=== PATIENT | female | born 1945 | race Caucasian/White ===

== ENCOUNTER 2018-01-12 09:04 | Outpatient (CLI) | payer MEDICARE, BC ==
--- NOTE | 2018-01-12 12:35 | MRI ---
MRI OF LEFT KNEE PERFORMED WITHOUT CONTRAST ENHANCEMENT: Date: 01-12-18 History: Knee and leg pain for the last five weeks. FINDINGS: There is increased signal change associated with an anterior cruciate ligament consistent with fairly extensive mucoid degeneration. Posterior cruciate ligament is intact. There is increased intrameniscal signal change within the body and posterior horn of the medial menis cus compatible with some internal mucoid degeneration. There is some minimal undersurface irregularit y to the posterior horn near the meniscal root suggesting some undersurface fraying or small tear. Although the anterior horn of the lateral meniscus can have a variable appearance and still be normal . The anterior horn in this case shows much more heterogeneous appearance suggesting mucoid degenerat ion. There is some minimal meniscal protrusion associated with this and some moderate arthritic brunner es of the lateral compartment of the knee with 3-4 mm area of full thickness articular cartilage loss involving more of the posterior articular cartilage and some subchondral marrow edema change noted. There is also some articular cartilage loss of the tibial cartilage. There is arthritic change of the patellofemoral joint space. There is fairly pronounced articular car tilage loss of the lateral facet, particularly near the apex of the patella and subchondral marrow ed bubba change and some associated abnormalities of the trochlear groove. Medial and lateral patellar retinaculum and quadriceps tendons are normal. There is some patellar ten dinosis noted. There is a mild to moderate joint effusion seen. Medial collateral ligament is intact. There is some increased signal change associated with the origi n of the lateral collateral ligament which could indicate some mucoid degeneration. IMPRESSION: 1. Arthritic changes of the knee which are more pronounced in the patellofemoral and lateral compartm ents. 2. 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 3. Minimal undersurface irregularity to the posterior horn of the medial meniscus. 4. Abnormal morphology to the anterior horn of the lateral meniscus suggesting internal mucoid degene ration. POS: [facility]
== END 2018-01-12 09:05 | disposition home or self-care (01) ==
LOC: SCSMRI 09:04
PROVIDERS: ATTEND Family Medicine
DX: M17.12 Unilateral primary osteoarthritis, left knee (principal)

== ENCOUNTER 2018-04-13 11:41 | Outpatient (CLI) | payer MEDICARE, BC | END 2018-04-13 11:42 | disposition home or self-care (01) | LOC: BICMAMMO 11:41 | PROVIDERS: ATTEND Family Medicine | DX: Z12.31 Encounter for screening mammogram for malignant neoplasm of breast (principal); Z80.3 Family history of malignant neoplasm of breast | CPT/HCPCS: 77063; 77067 ==

== ENCOUNTER 2018-05-27 09:14 | Emergency (ER) | payer MEDICARE, BC ==
[2018-05-27] MEDS ORDERED: HYDROcodone/Acetaminophen 5/325 mg Tablet ONE (10:11)
--- NOTE | 2018-05-27 10:42 | RAD ---
LEFT SHOULDER 3 VIEWS: HISTORY: A 73-year-old female with a history of left shoulder pain following an injury after tripping on a rug and falling. FINDINGS: Evidence for a comminuted fracture involving the humeral head and neck with some foreshortening. No sukhi dislocation. Clavicle and scapula appear intact. IMPRESSION: Comminuted fracture of the humeral head and neck with some foreshortening without dislocation. POS: [facility]
== END 2018-05-27 10:27 | disposition home or self-care (01) ==
LOC: SCSER 09:14
DX: S42.202A Unspecified fracture of upper end of left humerus, initial encounter for closed fracture (principal); E78.5 Hyperlipidemia, unspecified; I10 Essential (primary) hypertension; F32.9 Major depressive disorder, single episode, unspecified; W19.XXXA Unspecified fall, initial encounter

== ENCOUNTER 2018-06-01 08:12 | Outpatient (CLI) | payer MEDICARE, BC ==
--- NOTE | 2018-06-01 10:27 | CT ---
LEFT UPPER EXTREMITY CT WITHOUT IV CONTRAST INCLUDING 3D RENDERING: History: 73-year-old female with history of follow up left humeral head fracture. Comparison: 05-27-18 plain film examination FINDINGS: Comminuted fracture involving the humeral head and neck with slight foreshortening. There appears to be one small thin bony fragment which potentially could like intraarticularly. No dislocation. Diffus e soft tissue swelling and edema. IMPRESSION: Comminuted foreshortened humeral head and proximal neck fracture. There is one thin bony fragment whi ch potentially could be intraarticular. POS: [facility]
== END 2018-06-01 08:13 | disposition home or self-care (01) ==
LOC: CT 08:12
PROVIDERS: ATTEND Orthopaedic Surgery
DX: S42.212D Unspecified displaced fracture of surgical neck of left humerus, subsequent encounter for fracture with routine healing (principal)
CPT/HCPCS: 76377

== ENCOUNTER 2018-06-29 14:58 | Outpatient (CLI) | payer MEDICARE, BC ==
--- NOTE | 2018-06-29 16:51 | RAD ---
LUMBAR SPINE RADIOGRAPH SERIES FOUR VIEWS: INDICATIONS: Low back pain. FINDINGS: There is mild S-shaped curvature of the lumbar spine with accentuation of lumbar lordosis. There is mild retrolisthesis of L2 on L3 and grade I spondylolisthesis at L4-L5. Multilevel endplate degenera tive osteophytosis and associated disk space narrowing are present. There is multilevel facet osteoa rthritis, greatest inferiorly. No evidence of an acute compression fracture. No discrete displaced pars fracture is seen. IMPRESSION: Multilevel degenerative change and S-shaped curvature of the lumbar spine. POS: [facility]
== END 2018-06-29 14:59 | disposition home or self-care (01) ==
LOC: BICRAD 14:58
PROVIDERS: ATTEND Internal Medicine Rheumatology
DX: M54.5 Low back pain (principal); M47.816 Spondylosis without myelopathy or radiculopathy, lumbar region; M43.8X6 Other specified deforming dorsopathies, lumbar region
CPT/HCPCS: 72110

== ENCOUNTER 2018-08-05 11:16 | Outpatient (CLI) | payer MEDICARE, BC ==
--- NOTE | 2018-08-05 15:55 | MRI ---
MRI OF THE LEFT SHOULDER PERFORMED WITHOUT CONTRAST ENHANCEMENT: 08/05/18 HISTORY: Patient had a fall approximately nine weeks ago with shoulder pain ever since. COMPARISON: A 06/01/18 CT examination. There is motion artifact which degrades detail on this examination. There is a more transversely orie nted humeral neck fracture. The humeral shaft is displaced superiorly associated with this and there is a comminuted humeral head fracture which includes the greater tuberosity region. There is extensi ve marrow edema change associated with this. I believe that the humeral shaft is slightly more superi kin impacted than on the prior examination. The portions of the humeral head with a major component of articular surface is now more laterally rotated than on the previous exam. The infraspinatus tendon appears to be intact. There is what appears to be a partial undersurface tea r of the supraspinatus tendon. The extent of this is difficult to determine given the associated area s of fracture and the edema change related to the injury. It could be a moderate undersurface tear b ut the tendon is not retracted The subscapularis muscle is intact. The intra-articular portion of the biceps tendon is very tendinot ic in appearance with some increased signal change which may be related to the tendinopathy or possi kalin an associated split tear. There are marrow edema changes involving the inferior glenoid . There is some fluid type density along the posterior inferior glenoid which in reviewing the previous CT ma y actually represent some type of cyst within the bony portion of the glenoid rather than an actual labral tear as there is a subtle area of lucency seen on the CT bone windows in this area. The humeral attachment of the inferior glenohumeral ligament is effected due to the presence of the h umeral neck fracture which extends through the expected humeral attachment of the inferior glenohumer al ligament. IMPRESSION: 1. Comminuted humeral head fracture with an impacted humeral neck fracture. The humeral shaft ap pears more superiorly displaced than on the previous exam. 2. Partial undersurface tear of the supraspinatus tendon. The exact degree of tear is difficult to ascertain given the extensive edema change and fracture involving the greater tuberosity. I am not certain how much of the signal change of this is related to edema extending into the supraspinatus. 3. Thickened tendinophtic appearance to the biceps tendon specifically the intra-articular port ion of the biceps. There may be an associated split tear. POS: [facility]
== END 2018-08-05 11:17 | disposition home or self-care (01) ==
LOC: SCSMRI 11:16
PROVIDERS: ATTEND Pediatrics Sports Medicine
DX: M24.812 Other specific joint derangements of left shoulder, not elsewhere classified (principal); M25.512 Pain in left shoulder; M75.102 Unspecified rotator cuff tear or rupture of left shoulder, not specified as traumatic; S42.292A Other displaced fracture of upper end of left humerus, initial encounter for closed fracture

== ENCOUNTER 2019-03-31 13:30 | Inpatient (IN) | payer MEDICARE, BC ==
[2019-04-01 09:58] VITALS: BMI 30.5
[2019-04-09] MEDS ORDERED: Tranexamic Acid 1,000 MG/10 ML VIAL ONE (06:24)
[2019-04-09] MEDS ORDERED: Sodium Chloride 0.9% 100 ML ONE (06:24)
[2019-04-09] MEDS ORDERED: Vancomycin HCl 1.5 GM in Sodium Chloride 0.9% 250 ML 300 ML IVPB SCH ×3 (06:30→21:00)
[2019-04-09] MEDS ORDERED: Fentanyl 100 MCG/2 ML VIAL ONE ×2 (06:40→07:23)
[2019-04-09] MEDS ORDERED: Midazolam HCl 2 mg/2 ml Vial ONE (06:40)
[2019-04-09] MEDS ORDERED: Zolpidem Tartrate 5 MG TAB PO PRN (07:39)
[2019-04-09] MEDS ORDERED: Promethazine HCl 25 MG/ML VIAL IM PRN ×2 (07:39→10:05)
[2019-04-09] MEDS ORDERED: Ropivacaine 0.2% 550 ML 550 ML NERVE BLCK SCH (07:39)
[2019-04-09] MEDS ORDERED: Fentanyl 100 MCG/2 ML VIAL IV PRN (07:39)
[2019-04-09] MEDS ORDERED: HYDROcodone/Acetaminophen 10/325 mg Tablet PO PRN (07:39)
[2019-04-09] MEDS ORDERED: traMADol HCl 50 MG TAB PO PRN ×2 (07:39)
[2019-04-09] MEDS ORDERED: Ondansetron PF 4 MG/2 ML Vial IVP PRN (07:39)
[2019-04-09] MEDS ORDERED: Phenylephrine HCL 10 MG/ML VIAL ONE (07:43)
[2019-04-09] MEDS ORDERED: Aspirin 81 mg Enteric Coated Tablet PO SCH (10:00)
[2019-04-09] MEDS ORDERED: Ondansetron HCl/PF 4 MG/2 ML Vial IVP PRN (10:05)
[2019-04-09] MEDS ORDERED: Promethazine HCl 25 MG/ML VIAL SLOW IVP PRN (10:05)
[2019-04-09] MEDS ORDERED: HYDROmorphone 2 MG/ML VIAL SLOW IVP PRN (10:05)
[2019-04-09] MEDS ORDERED: Ropivacaine 0.5% HCl/PF (150 MG/30 ML VIAL) ONE (11:29)
[2019-04-09] MEDS ORDERED: Ropivacaine 0.2% HCl/PF (40 MG/20 ML VIAL) ONE (11:29)
[2019-04-09] MEDS ORDERED: Glycopyrrolate 0.2 MG/ML 5 ML SYRINGE ONE (11:36)
[2019-04-09] MEDS ORDERED: Hydrocortisone Sod Succ/PF 100 mg/2 ml Vial ONE (11:36)
[2019-04-09] MEDS ORDERED: Rocuronium Bromide 10 MG/ML (10ML VIAL) ONE (11:36)
[2019-04-09] MEDS ORDERED: Ondansetron PF 4 MG/2 ML Vial ONE (11:36)
[2019-04-09] MEDS ORDERED: PROPOFOL 200 MG/20 ML VIAL ONE (11:36)
[2019-04-09] MEDS ORDERED: ePHEDrine 50 MG/ML VIAL ONE (11:36)
[2019-04-09] MEDS ORDERED: PHENYLEPHRINE-NS 100 MCG/ML 10 ML SYRINGE ONE (11:36)
[2019-04-09] MEDS ORDERED: Lidocaine 1% PF 5 ML VIAL ONE (11:36)
--- NOTE | 2019-04-09 11:48 | RAD ---
LEFT SHOULDER 1 VIEW: INDICATION: Shoulder survey after postop. COMPARISON: Left shoulder radiograph dated 05/27/2018. IMPRESSION: There has been interval placement of a reversible shoulder. Prosthetic components project in the exp ected position. POS: [facility]
[2019-04-09] MEDS: CEFAZOLIN 2 GM in Premix Bag 1 BAG IVPB SCH ×2 (15:58→22:00)
[2019-04-09] MEDS: Ketorolac Tromethamine 30 MG/ML VIAL IVP SCH ×3 (16:06→23:00)
[2019-04-09] MEDS: Lactated Ringer's 1,000 ML IV SCH (19:36)
[2019-04-09] MEDS ORDERED: Calcium Carbonate 500 MG ChewTAB PO PRN (19:46)
[2019-04-09] MEDS ORDERED: Trospium 20 MG TAB PO SCH (21:00)
[2019-04-09] MEDS: HYDROcodone/Acetaminophen 10/325 mg Tablet PO PRN (21:59)
[2019-04-10] MEDS: Lactated Ringer's 1,000 ML IV SCH (02:02)
[2019-04-10] MEDS: Ketorolac Tromethamine 30 MG/ML VIAL IVP SCH (05:10)
[2019-04-10 07:27] VITALS: BP 119/69; TEMP 98
[2019-04-10] MEDS: HYDROcodone/Acetaminophen 10/325 mg Tablet PO PRN (08:09)
[2019-04-10] MEDS ORDERED: Losartan/Hydrochlorothiazide 100 mg/25 mg Tablet PO SCH (09:00)
[2019-04-10] MEDS ORDERED: predniSONE 5 MG TAB PO SCH (09:00)
[2019-04-10] MEDS ORDERED: Amlodipine 5 MG TAB PO SCH (09:00)
[2019-04-10] MEDS ORDERED: Venlafaxine HCl XR 150 MG CAP PO SCH (09:00)
[2019-04-10] MEDS ORDERED: Calcium Carbonate 600 MG TAB PO SCH (09:00)
[2019-04-10] MEDS ORDERED: Rosuvastatin 20 MG TAB PO SCH (09:00)
--- NOTE | 2019-04-12 10:11 | OP ---
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 PROCEDURES PERFORMED: Left reverse total shoulder arthroplasty and biceps tenodesis. MAINTENANCE MECHANIC TECHNICIAN: Brittany. BLOOD LOSS: 150. SPECIMEN: None. DRAINS: None. COMPLICATION: None. IMPLANTS USED: [employer]ers Tornier 25 mm base plate with anterior screw 23, posterior screw 18, superior screw 23, inferior screws 32, glenosphere 36 mm centered stem, 9 mm Revive stem, tray is 0 mm high offset Flex tray, the poly is 6 mm. DESCRIPTION OF PROCEDURE: The patient was taken to the operating room, where general anesthesia induced. The left shoulder was prepped and draped in usual sterile fashion. I made a standard deltopectoral approach and the dissection carried down to the deltopectoral interval. The subscapularis was quite scarred down to the neck. The head was deformed and portions of the head were greatly displaced. I identified the bicipital groove, tagged the biceps, and removed it from the superior glenoid tubercle, it was in very poor condition from being encapsulated in bone. I then freed up subscapularis, removed multiple large fragments of bone from the inferior pouch. Posteriorly, there was a malunited greater tuberosity fragment posterior and inferior, which would cause levering and dislocation type problems, so these were removed. The head was cut in 20 degrees retroversion, broached up to a size 9. A 9 stem was placed. I then exposed the glenoid, exposed it circumferentially, removed remaining labrum tissue. The glenoid bone was very soft, probably if it has not been loaded at all for about the last 9 months since she fractured her humerus. I placed a base plate slightly inferior with an inferior tilt. I drilled a centering hole, inserted the screws to the base plate with good fixation. Glenosphere was inserted over the Obrien taper and the locking screw tightened. I then trialed with a 6 mm, reduction was quite difficult, it was very tight, however, was able to get a 6 mm poly, and reduced. Irrigation was performed, trials removed, then placed permanent stem and reduced the shoulder. She had good stability throughout entire range of motion except at about 20 degrees external rotation, she was blocked and if you really push hard past that block, she will dislocate. I did palpate posteriorly and all the bone which I could reach was removed, and there may be some more bone I did repair subscapularis to the supraspinatus as much as possible with #5 Ethibond. I did perform a biceps tenodesis with #5 Ethibond. Deltopectoral interval was closed with #1 Vicryl with irrigation between layers, subcutaneous tissues with 2-0 Vicryl. Skin was closed with humberto. Sterile dressings applied. Job ID: [id number]
== END 2019-04-10 09:55 | disposition home or self-care (01) | DRG 483 ==
LOC: SURG A 04-09 06:09 → SURG B 04-09 11:10
PROVIDERS: ADMIT Orthopaedic Surgery; ATTEND Orthopaedic Surgery
PROC: 0RRK00Z Replacement of Left Shoulder Joint with Reverse Ball and Socket Synthetic Substitute, Open Approach (ICD-10-PCS; principal; 2019-04-09)
PROC: 0LS40ZZ Reposition Left Upper Arm Tendon, Open Approach (ICD-10-PCS; 2019-04-09)
DX: S42.29 Other fracture of upper end of humerus (principal); M87.022 Idiopathic aseptic necrosis of left humerus; I10 Essential (primary) hypertension; I25.10 Atherosclerotic heart disease of native coronary artery without angina pectoris; E11.9 Type 2 diabetes mellitus without complications; E78.5 Hyperlipidemia, unspecified; E03.9 Hypothyroidism, unspecified; F32.9 Major depressive disorder, single episode, unspecified; F41.9 Anxiety disorder, unspecified; K21.9 Gastro-esophageal reflux disease without esophagitis; Z90.89 Acquired absence of other organs; Z88.2 Allergy status to sulfonamides; Z98.42 Cataract extraction status, left eye; Z98.41 Cataract extraction status, right eye; Z88.8 Allergy status to other drugs, medicaments and biological substances
CPT/HCPCS: A4306; C1713; J0131; J0690; J1885; J2250; J2370; J2795; J3010; J3370; J3490; J7050; J7512

== ENCOUNTER 2019-04-01 09:53 | Outpatient (CLI) | payer MEDICARE, BC ==
[2019-04-01 11:32] LABS: #Eosinphils 0.1 thou/uL (0.0-0.7); #Monocytes 0.7 thou/uL (0.11-0.59); #Neutrophils 6.4 thou/uL (1.40-6.50); %Basophils 0.4 % (0.0-1.0); %Eosinophils 0.8 % (0.0-10.0); %Lymphocytes 12.5 % (21.0-51.0); %Neutrophils 77.2 % (42.0-75.0); Hemoglobin 13.7 g/dL (12.0-16.0); Mean Corpuscular Hemoglobin 31.4 pg (27.0-31.0); Mean Corpuscular Volume 92.3 fL (78.0-98.0); Mean Platelet Volume 8.4 fL (7.4-10.4); Platelet Count 264 thou/uL (130-400); RBC Distribution Width 11.5 % (11.5-14.5); Red Blood Cell (RBC) Count 4.38 mill/uL (4.20-5.40); White Blood Cell (WBC) Count 8.2 thou/uL (4.8-10.8)
[2019-04-01 11:54] LABS: Anion Gap 15 mmol/L (10-20); BUN (Urea Nitrogen) 19 mg/dL (9.8-20.1); Calc. Creatinine Clearance 0 mL/min (70-130); Calcium 10.3 mg/dL (7.8-10.44); Carbon Dioxide 25 mmol/L (23-31); Chloride 98 mmol/L (98-107); Estimated GFR-MDRD 78; Glucose 101 mg/dL (83-110); Potassium 4.5 mmol/L (3.5-5.1); Sodium 133 mmol/L (136-145)
== END 2019-04-01 09:54 | disposition home or self-care (01) ==
LOC: LABBT 09:53
PROVIDERS: ATTEND Orthopaedic Surgery
DX: Z01.818 Encounter for other preprocedural examination (principal); S42.92XA Fracture of left shoulder girdle, part unspecified, initial encounter for closed fracture
CPT/HCPCS: 80048; 85025; 87081; 93005; 93010

== ENCOUNTER 2019-05-07 16:14 | Emergency (ER) | payer MEDICARE, BC ==
--- NOTE | 2019-05-07 17:27 | RAD ---
LEFT SHOULDER: 05/07/19 Three views. INDICATION: Injury. There is a left shoulder prosthesis. Components appear in adequate position and alignment. No fractur e. IMPRESSION: No acute abnormality identified. POS: [facility]
== END 2019-05-07 18:47 | disposition home or self-care (01) ==
LOC: SCSER 16:14
DX: S40.012A Contusion of left shoulder, initial encounter (principal); S50.812A Abrasion of left forearm, initial encounter; S80.212A Abrasion, left knee, initial encounter; E78.5 Hyperlipidemia, unspecified; I10 Essential (primary) hypertension; F32.9 Major depressive disorder, single episode, unspecified; W18.30XA Fall on same level, unspecified, initial encounter

== ENCOUNTER 2019-07-05 09:37 | Outpatient (CLI) | payer MEDICARE, BC ==
--- NOTE | 2019-07-05 11:22 | MRI ---
MR the lumbar spine without contrast INDICATION: Lumbar radiculopathy COMPARISON: None. TECHNIQUE: Multiplanar multisequence MR images were obtained of lumbar spine without IV contrast. FINDINGS: Bone marrow: There is type III Modic endplate degenerative change at L1-L2. Distal spinal cord and conus: Normal. The conus seen to terminate at L1. Visualized retroperitoneum and paraspinal soft tissues: There is a large T2 hyperintense, T1 hypointe nse 6.8 x 5.8 cm cystic abnormality involving the superior pole of the left kidney. This is not completely included in the [id number]. Vertebral levels: L5-S1: There is a broad-based bulge with facet hypertrophy and loss of disc space height inducing mil d right and moderate left neural foraminal narrowing.. L4-5: There is grade 1 anterolisthesis of L4 and L5. There is severe facet joint degenerative change, broad-based disc bulge and ligamentum flavum hypertrophy inducing mild central canal narrowing with mild bilateral neural foraminal narrowing, right greater than left. L3-4: There is a broad-based bulge with facet hypertrophy and ligament flavum hypertrophy inducing mi ld central canal narrowing with [id number] bilateral neural foraminal narrowing. L2-3: There is a broad-based disc osteophyte complex with facet hypertrophy, ligament flavum hypertro phy and prominence of the epidural fat inducing severe central canal narrowing and moderate to severe right and [id number] left neural foraminal narrowing. L1-L2: There is a broad-based disc osteophyte complex with facet hypertrophy, ligament flavum hypertr ophy and prominence of the epidural fat inducing moderate central canal narrowing with mild to moderate right and moderate left neural foraminal narrowing T12-L1: There is a broad-based bulge with a superimposed central, cephalad extending disc extrusion. The extrusion causes effacement of subarachnoid space without definite contact of the conus. There is no neural foraminal narrowing. IMPRESSION: 1. Moderate to severe multilevel spondylosis of the lumbar spine. 2. Severe central canal narrowing at L2-3 due to degenerative change in prominence of the epidural fa t. There is moderate to severe right and mild to moderate left neural foraminal narrowing at L2-3. 3. Moderate central canal narrowing at L1-L2 with [id number] right and moderate left neural for aminal narrowing. 4. Moderate left neural foraminal narrowing at L5-S1. 5. Mild central canal narrowing mild bilateral neural foraminal narrowing, right greater than left, a t L4-L5. 6. Cephalad extending central disc extrusion at T12-L1 with mild ventral effacement of the thecal sac without definite conus or distal cord contact.
== END 2019-07-05 09:38 | disposition home or self-care (01) ==
LOC: SCSMRI 09:37
PROVIDERS: ATTEND Psychiatry & Neurology Neurology
DX: M47.26 Other spondylosis with radiculopathy, lumbar region (principal); G89.29 Other chronic pain; M48.061 Spinal stenosis, lumbar region without neurogenic claudication; M48.07 Spinal stenosis, lumbosacral region; M51.25 Other intervertebral disc displacement, thoracolumbar region
CPT/HCPCS: 72148

== ENCOUNTER 2020-03-06 13:35 | Outpatient (CLI) | payer MEDICARE, BC ==
--- NOTE | 2020-03-06 14:21 | MMO ---
Bilateral MAMMO Bilat Screen [facility]. CLINICAL HISTORY: Patient is 74 years old and is seen for screening. The patient has no family history of breast cancer. The patient has no personal history of cancer. VIEWS: The views performed were: bilateral craniocaudal with tomosynthesis and bilateral mediolateral oblique with tomosynthesis. FILMS COMPARED: The present examination has been compared to prior imaging studies performed at [facility] on 06/16/2014, 06/13/2015, 04/10/2017 and 04/13/2018. This study has been interpreted with the assistance of computer-aided detection. MAMMOGRAM FINDINGS: The breasts are almost entirely fat. There are no suspicious masses, suspicious calcifications, or new areas of architectural distortion. IMPRESSION: THERE IS NO MAMMOGRAPHIC EVIDENCE OF MALIGNANCY. A ROUTINE FOLLOW-UP MAMMOGRAM IN 1 YEAR IS RECOMMENDED. THE RESULTS OF THIS EXAM WERE SENT TO THE PATIENT. ACR BI-RADS Category 1 - Negative MAMMOGRAPHY NOTE: 1. A negative mammogram report should not delay a biopsy if a dominant of clinically suspicious mass is present. 2. Approximately 10% to 15% of breast cancers are not detected by mammography. 3. Adenosis and dense breasts may obscure an underlying neoplasm. Reported by: AUBREY MORATAYA MD Electonically Signed: [id number]
--- NOTE | 2020-03-06 15:23 | MRI ---
MRI lumbar spine noncontrast HISTORY: Low back pain without radiculopathy. FINDINGS: The conus medullaris has a normal appearance. Vertebral body heights are maintained. Desicc ation of all of the intervertebral discs. Prominent discogenic endplate changes throughout the bone marrow. Images including the retroperitoneum show cysts arising from the cortex of each kidney, including a l arge exophytic cyst at the superior pole left kidney. T11/12: Posterior disc bulge is present with effacement of the ventral aspect of the thecal sac. T12-L1: Mild disc bulge. Circumferential degenerative changes. Slight inferior extension of a focal d isc protrusion centrally. Mild stenosis of the central canal and each neural foramen. L1-2: Disc space narrowing. Posterior disc bulge and circumferential degenerative changes. Moderate s tenosis of the central canal. Severe stenosis of each neural foramen. L2-3: Disc space narrowing. Minimal degenerative retrolisthesis. Posterior disc bulge and circumferen tial degenerative changes. Severe stenosis of the central canal and each neural foramen. L3-4: Disc space narrowing. Minimal degenerative spondylolisthesis. Posterior disc bulge and circumfe rential degenerative changes. Moderate stenosis of the central canal and each neural foramen. L4-5: Minimal degenerative spondylolisthesis. Posterior disc bulge and circumferential degenerative c hanges. Moderate to severe stenosis of the central canal. Moderate stenosis of each neural foramen. L5-S1: Minimal degenerative spondylolisthesis. Mild disc bulge. Prominent osteophytosis of the facets . Central canal and right neural foramen are patent. Mild stenosis of the left neural foramen. IMPRESSION : Prominent degenerative changes throughout the lumbar spine as detailed above. Central canal and estefani inal stenoses most severe at the L1-2 and L2-3 levels.
== END 2020-03-06 13:36 | disposition home or self-care (01) ==
LOC: BICMAMMO 13:35
PROVIDERS: ATTEND Family Medicine
DX: Z12.31 Encounter for screening mammogram for malignant neoplasm of breast (principal); M54.5 Low back pain; M35.3 Polymyalgia rheumatica; M47.816 Spondylosis without myelopathy or radiculopathy, lumbar region; M48.061 Spinal stenosis, lumbar region without neurogenic claudication
CPT/HCPCS: 72148; 77063; 77067

== ENCOUNTER 2020-05-01 07:39 | Outpatient (CLI) | payer MEDICARE, BC, OTHER ==
[2020-05-02 14:58] LABS: SARS-CoV-2 MS2 Positive; SARS-CoV-2 N Gene Negative; SARS-CoV-2 S Gene Negative; SARS-CoV-2 by NAA Not Detected (NotDetected); SARS-CoV-2 orf1ab Negative
== END 2020-05-01 07:40 | disposition home or self-care (01) ==
LOC: LABBT 07:39
PROVIDERS: ATTEND Surgery
DX: K44.9 Diaphragmatic hernia without obstruction or gangrene (principal); Z20.828 Contact with and (suspected) exposure to other viral communicable diseases
CPT/HCPCS: 87635; U0003

== ENCOUNTER 2020-05-04 07:47 | Outpatient (CLI) | payer MEDICARE, BC, OTHER ==
[2020-05-04 18:03] LABS: #Basophils 0.1 thou/uL (0.0-0.2); #Eosinphils 0.1 thou/uL (0.0-0.7); #Lymphocytes 1.6 thou/uL (1.20-3.40); #Neutrophils 9.2 thou/uL (1.40-6.50); %Basophils 0.5 % (0.0-1.0); %Eosinophils 0.6 % (0.0-10.0); %Lymphocytes 13.1 % (21.0-51.0); %Monocytes 8.1 % (0.0-10.0); %Neutrophils 77.8 % (42.0-75.0); Hemoglobin 14.2 g/dL (12.0-16.0); Mean Corpuscular Hemoglobin 31.7 pg (27.0-31.0); Mean Corpuscular Volume 96.2 fL (78.0-98.0); Mean Platelet Volume 8.4 fL (7.4-10.4); Platelet Count 313 thou/uL (130-400); RBC Distribution Width 11.8 % (11.5-14.5); Red Blood Cell (RBC) Count 4.47 mill/uL (4.20-5.40); White Blood Cell (WBC) Count 11.8 thou/uL (4.8-10.8)
[2020-05-04 18:15] LABS: Anion Gap 13 mmol/L (10-20); BUN (Urea Nitrogen) 15 mg/dL (9.8-20.1); Calc. Creatinine Clearance 0 mL/min (70-130); Calcium 9.6 mg/dL (7.8-10.44); Carbon Dioxide 28 mmol/L (23-31); Chloride 99 mmol/L (98-107); Estimated GFR-MDRD 65; Glucose 98 mg/dL (83-110); Potassium 4.2 mmol/L (3.5-5.1); Sodium 136 mmol/L (136-145)
[2020-05-05 11:16] LABS: SARS-CoV-2 MS2 Positive; SARS-CoV-2 N Gene Negative; SARS-CoV-2 S Gene Negative; SARS-CoV-2 by NAA Not Detected (NotDetected); SARS-CoV-2 orf1ab Negative
== END 2020-05-04 07:48 | disposition home or self-care (01) ==
LOC: LABBT 07:47
PROVIDERS: ATTEND Surgery
DX: Z01.818 Encounter for other preprocedural examination (principal); K44.9 Diaphragmatic hernia without obstruction or gangrene; Z20.828 Contact with and (suspected) exposure to other viral communicable diseases
CPT/HCPCS: 80048; 85025; 93005; U0003; 87635; 93010

== ENCOUNTER → 2020-05-04 | Day surgery (SDC) | payer MEDICARE, BC | LOC: SDC 07:33 | PROVIDERS: ATTEND Surgery | DX: K44.9 Diaphragmatic hernia without obstruction or gangrene (principal); Z88.2 Allergy status to sulfonamides; Z20.828 Contact with and (suspected) exposure to other viral communicable diseases | CPT/HCPCS: 80048; 85025; 87635; 91010; U0003 ==

== ENCOUNTER 2020-05-09 07:08 | Observation (INO) | payer MEDICARE, BC ==
[2020-05-04 11:27] VITALS: BMI 31.3
[2020-05-09] MEDS ORDERED: Bupivacaine/Epinephrine 0.25% 30 ML VIAL ONE (08:45)
[2020-05-09] MEDS ORDERED: Fentanyl 250 MCG/5 ML VIAL ONE (09:06)
[2020-05-09] MEDS ORDERED: Lidocaine 2% Jelly 5 ML TUBE ONE (09:06)
[2020-05-09] MEDS ORDERED: Fentanyl 100 MCG/2 ML VIAL ONE (11:48)
[2020-05-09] MEDS ORDERED: Hydrocodone-Acetamin 15 ML UDCUP PO PRN (13:18)
[2020-05-09] MEDS ORDERED: Dextrose 5% in Water 1,000 ML IV PRN (13:18)
[2020-05-09] MEDS ORDERED: Promethazine HCl 25 MG/ML VIAL IM PRN (13:18)
[2020-05-09] MEDS ORDERED: Dextrose 50% Abboject 50 ML SYRINGE SLOW IVP PRN (13:18)
[2020-05-09] MEDS ORDERED: Ondansetron PF 4 MG/2 ML Vial IVP PRN (13:18)
[2020-05-09] MEDS ORDERED: Morphine 2 MG/ML VIAL SLOW IVP PRN (13:18)
[2020-05-09] MEDS ORDERED: hydrALAZINE 20 MG/ML VIAL SLOW IVP PRN (13:18)
[2020-05-09] MEDS ORDERED: Morphine 4 MG/ML VIAL SLOW IVP PRN (13:18)
[2020-05-09] MEDS ORDERED: Lidocaine 1% PF 5 ML VIAL ONE (13:49)
[2020-05-09] MEDS ORDERED: Ondansetron PF 4 MG/2 ML Vial ONE (13:49)
[2020-05-09] MEDS ORDERED: Rocuronium Bromide 10 MG/ML (10ML VIAL) ONE (13:49)
[2020-05-09] MEDS ORDERED: Dexamethasone 20 MG/5 ML VIAL ONE (13:49)
[2020-05-09] MEDS ORDERED: EPHEDRINE 25 MG/5 ML SYRINGE ONE (13:49)
[2020-05-09] MEDS ORDERED: Glycopyrrolate 0.2 MG/ML 5 ML SYRINGE ONE (13:49)
[2020-05-09] MEDS ORDERED: PHENYLEPHRINE-NS 100 MCG/ML 10 ML SYRINGE ONE (13:49)
[2020-05-09] MEDS ORDERED: PROPOFOL 200 MG/20 ML VIAL ONE (13:49)
[2020-05-09] MEDS: Sodium Chloride 0.9% 1,000 ML IV SCH (15:30)
[2020-05-09] MEDS ORDERED: Enoxaparin Sodium 40 MG/0.4 ML SYRINGE SC SCH (21:00)
[2020-05-09] MEDS: Trospium 20 MG TAB PO SCH (22:51)
[2020-05-10] MEDS ORDERED: predniSONE 1 MG TAB PO SCH (08:00)
[2020-05-10] MEDS ORDERED: Venlafaxine HCl XR 150 MG CAP PO SCH (09:00)
[2020-05-10] MEDS ORDERED: Losartan/Hydrochlorothiazide 100 mg/25 mg Tablet PO SCH (09:00)
[2020-05-10] MEDS ORDERED: Amlodipine 5 MG TAB PO SCH (09:00)
[2020-05-10] MEDS ORDERED: Pantoprazole 40 MG VIAL IVP SCH (09:00)
[2020-05-10] MEDS ORDERED: FLU VACC QS2020-21(65YR UP)/PF 240 MCG/0.7 ML SYRINGE IM ONE (09:00)
[2020-05-10] MEDS: Trospium 20 MG TAB PO SCH (09:07)
[2020-05-10] MEDS: Sodium Chloride 0.9% 1,000 ML IV SCH (09:22)
--- NOTE | 2020-05-10 10:11 | PDOC.GSPN ---
Surgery Progress Note: Subj - Subjective Patient reports: pain well controlled, tolerating liquids well Narrative: Ms. Jones is a 75 year old female who is 1 day s/p hiatal hernia repair with fundoplication due to severe GERD that was unresponsive to medication. She has been tolerating a full liquid diet without any nausea, vomiting, or abdominal pain. Denies any acid reflux symptoms or abdominal soreness this morning. She has been able to ambulate without difficulty. Denies fever, chills, CP, SOB, dysuria. Surgery Progress Note: Obj - Vital signs Vital signs: Vital Signs - Most Recent Temp Pulse Resp BP Pulse Ox 98.2 F 94 18 135/72 93 L 05/10/20 07:20 05/10/20 07:20 05/10/20 07:20 05/10/20 09:02 05/10/20 07:20 - Physical Exam General: no distress, well developed Cardiovascular: regular rate and rhythm Respiratory: clear to auscultation Abdomen: soft, non tender, positive bowel sounds Wound: healing well (mild purple bruising around one of the port site incisions) Surgery Progress Note: A/P - Plan Plan: Post op day 1 from hiatal hernia repair and fundoplication. She is tolerating a full liquid diet and ambulating without difficulty. Will discharge her home on pain regime, anti-emetics PRN, and home medications. She is advised to progress to a soup diet for a few days, then a casserole type diet, and normal diet as tolerated. Will have her follow up in the office in 2 weeks.
[2020-05-10 11:18] VITALS: BP 147/80; TEMP 98.1
--- NOTE | 2020-05-10 19:11 | OP ---
DATE OF PROCEDURE: 05/09/2020 PREOPERATIVE DIAGNOSIS: Paraesophageal and sliding hiatal hernia. POSTOPERATIVE DIAGNOSIS: Paraesophageal and sliding hiatal hernia. PROCEDURE PERFORMED: Laparoscopic hiatal hernia repair with fundoplication and mesh (Strattice 6 x 8 cm). ANESTHESIA: General. ESTIMATED BLOOD LOSS: Minimal. COMPLICATIONS: None. SPECIMEN: None. FINDINGS: Normal postoperative EGD. DESCRIPTION OF PROCEDURE: The patient was taken to the operating room and laid supine on the operating roseanne table. After general anesthetic was obtained, OG tube was used to decompress the stomach. The abdomen was shaved, prepped and draped in the sterile fashion. Left subcostal 5 mm Optiview trocar was placed. High-flow pneumoperitoneum was obtained. A 5 mm port was made midway between xiphoid and umbilicus. A 5 mm port was placed to the right of xiphoid. The 5 mm left subxiphoid was switched out to an 8 mm port. 5 mm ports were placed in the left lower and right lower abdomen. Snake liver retractor was brought into the right lower abdomen and were used to raise the liver off the GE junction. The patient was placed in reverse Trendelenburg. Short gastrics were taken down in the upper body of the stomach, exposing left pretty. Left pretty, posterior fundus, and angle of His were completely dissected. Fundus of the stomach was able to be dissected out of the mediastinal space. The gastrohepatic ligament was opened and the right pretty of the diaphragm was exposed. The mediastinum was entered on the right. A circumferential dissection of the esophagus was then performed. The GE junction and all the fundus were brought back into the abdominal cavity. On the medial side, the right and left pretty could be seen and there was a posterior GE junction window made. The posterior crura were closed using interrupted Ethibond suture and the Ti-KNOT system. A 44 bougie had been brought in with its tip left in the antrum of the stomach during this portion of the procedure. The fundus from the patient's left was able to be passed through this retrogastric window and brought up anteriorly on top of the GE junction, so residual fundus from the left was sutured to this fundus and passed to the right. Care was taken to make sure the stomach was not twisted or ischemic and it was not. The top suture was used to obtain a small amount of the GE junction. Two additional sutures were placed below to perform the fundoplication. Strattice porous mesh was brought in and cut to a 4 x 6 cm size and placed into the abdominal cavity. It was laid on top of the diaphragmatic repair. It was sewn in place using Ethibond and glued in place using Tisseel and the Tisseel mat. There was no bleeding in the abdomen. After the bougie was removed, EGD scope was passed in the esophagus and stomach to the level of the duodenum without obstruction. There was no stricture at the diaphragmatic hiatus or at the GE junction. EGD scope was used to decompress the stomach. It was pulled and removed. All port sites were infiltrated using local anesthetic. The liver retractor was removed under direct visualization without bleeding. Pneumoperitoneum was let down. All ports were removed without bleeding. Pneumoperitoneum was let down. 4-0 Monocryl and Dermabond were used to close all skin incisions. The patient was sent to Recovery in stable condition. All instrument counts, needle counts, and lap counts were correct. Job ID: [id number]
--- NOTE | 2020-05-11 03:29 | DIS ---
DATE OF ADMISSION: 05/09/2020 DATE OF DISCHARGE: 05/10/2020 ADMITTING DIAGNOSIS: Hiatal hernia. DISCHARGE DIAGNOSIS: Hiatal hernia. PROCEDURES: Laparoscopic hiatal hernia repair with fundoplication and mesh by Dr. Harper without complication. CONDITION ON DISCHARGE: Improved. STAFF: Nestor Harper MD HOSPITAL COURSE: On hospital day #1, the patient is doing well. She is tolerating full liquid diet. She is ambulatory and her pain is controlled. She denies shortness of breath. She is discharged home. She will follow up with me in the office in 2 weeks. She is giving prescriptions for Lortab Elixir and Zofran that were sent to her pharmacy. Return to see me in 2 weeks. Job ID: [id number]
== END 2020-05-10 12:55 | disposition home or self-care (01) ==
LOC: SDC 07:08 → SURG B 12:59
PROVIDERS: ADMIT Surgery; ATTEND Surgery
PROC: 0DV44ZZ Restriction of Esophagogastric Junction, Percutaneous Endoscopic Approach (ICD-10-PCS; principal; 2020-05-09)
DX: K44.9 Diaphragmatic hernia without obstruction or gangrene (principal); K21.9 Gastro-esophageal reflux disease without esophagitis; Z88.2 Allergy status to sulfonamides
CPT/HCPCS: 43280; 90662; G0008; Q4130; 90471; 96372; 96374; C9113; G0378; J0690; J1100; J1650; J2405; J2704; J3010; J7512

== ENCOUNTER 2020-10-13 10:51 | Outpatient (CLI) | payer MEDICARE, BC ==
[2020-10-13] MEDS ORDERED: Iopamidol-370 76% 500 ML 1 ML ONE (11:18)
== END 2020-10-13 10:52 | disposition home or self-care (01) ==
LOC: BICCT 10:51
PROVIDERS: ATTEND Internal Medicine Cardiovascular Disease
DX: I71.2 Thoracic aortic aneurysm, without rupture (principal); I77.810 Thoracic aortic ectasia; N28.1 Cyst of kidney, acquired
CPT/HCPCS: 71275; Q9967

== ENCOUNTER 2022-10-09 10:46 | Outpatient (CLI) | payer MEDICARE, BC | END 2022-10-09 10:47 | disposition home or self-care (01) | LOC: BICMAMMO 10:46 | PROVIDERS: ATTEND Family Medicine | DX: Z12.31 Encounter for screening mammogram for malignant neoplasm of breast (principal); M85.851 Other specified disorders of bone density and structure, right thigh; M81.0 Age-related osteoporosis without current pathological fracture; Z78.0 Asymptomatic menopausal state | CPT/HCPCS: 77063; 77067; 77080 ==

== ENCOUNTER 2022-11-26 08:33 | Outpatient (CLI) | payer MEDICARE, BC | END 2022-11-26 08:34 | disposition home or self-care (01) | LOC: NM 08:33 | PROVIDERS: ATTEND Family Medicine | DX: E21.3 Hyperparathyroidism, unspecified (principal); R22.1 Localized swelling, mass and lump, neck | CPT/HCPCS: 78072; A9500 ==

== ENCOUNTER 2023-04-17 13:26 | Outpatient (CLI) | payer MEDICARE, BC | END 2023-04-17 13:27 | disposition home or self-care (01) | LOC: SCSMRI 13:26 | PROVIDERS: ATTEND Family Medicine | DX: M48.062 Spinal stenosis, lumbar region with neurogenic claudication (principal); M47.816 Spondylosis without myelopathy or radiculopathy, lumbar region; M47.817 Spondylosis without myelopathy or radiculopathy, lumbosacral region | CPT/HCPCS: 72148 ==